=== PATIENT | female | born 1950 | race Caucasian/White ===

== ENCOUNTER 2017-10-22 09:45 | Emergency (ER) | payer MEDICARE ==
[2017-10-22] MEDS ORDERED: [UNRECOGNIZED DRUG - OTHER] (09:56)
[2017-10-22] MEDS ORDERED: ACETAMINOPHEN 500 MG TAB PO ONE (10:10)
--- NOTE | 2017-10-22 10:17 | ER Report ---
History and Physical Time Seen By MD: 10:08 Hx. of Stated Complaint: TRIPPED ON AN UNEVEN SURFACE. PAIN IN LEFT KNEE AND RIGHT SHOULDER HPI/ROS This is an otherwise healthy 67 y/o female who tripped and fell onto her left knee and right shoulder today. Unable to ambulate on left knee. Swelling and pain in left knee, but only minimal pain in right shoulder. Full range of motion in right shoulder. No other injuries. No blood thinners. Remainder of the 14 system rev: Yes Allergies: Coded Allergies: Penicillins (Verified Allergy, Intermediate, 10/22/17) RASH Home Meds Reported Medications [Zopanex] No Conflict Check 10/22/17 Reviewed Nurses Notes: Yes Old Medical Records Reviewed: Yes Hx Smoking: No Smoking Status: Never Smoker Hx Substance Use Disorder: No Hx Alcohol Use: No Constitutional Physical Exam General Appearance: The patient is alert, has no immediate need for airway protection and no current signs of toxicity. Eyes: Pupils equal and round no injection. Musculoskeletal: TTP at posterior aspect of right shoulder. FROM of right shoulder. No swelling. Left knee with swelling and effusion. Limited ROM. Extremities have full range of motion and are non tender. Skin: No rashes or lesions. DIFFERENTIAL DIAGNOSIS: After history and physical exam differential diagnosis was considered for fracture, dislocation, traumatic effusion Medical Decision Making ED Course/Re-evaluation ED Course Fall onto left knee. Arthrocentesis reveals hemarthrosis. Pain and mobility improved after procedure. Right shoulder with likely contusion. Full ROM, and normal xray. Also with patella fracture. Placed in a knee immobilizer, and will follow up with ortho. Procedure Arthrocentesis of left knee: Sterile field, 5ml of 1% lidocaine injected laterally. Approximately 45ml of blood drained from left knee joint. Pt. tolerated well, and mobility improved. Decision to Disposition Date: Oct 22, 2017 Decision to Disposition Time: 11:29 Depart Departure Latest Vital Signs Impression: Primary Impression: Patella fracture Additional Impression: Hemarthrosis Condition: Improved Disposition: HOME OR SELF-CARE Referrals: JAGDEEP PHILLIP MD Patient Instructions: Patellar Fracture (ED) Problem Qualifiers Primary Impression: Patella fracture Encounter type: initial encounter Fracture type: closed Fracture morphology : transverse Fracture alignment: nondisplaced Laterality: left Qualified Codes: S82.035A - Nondisplaced transverse fracture of left patella, initial encounter for closed fracture NABILA PACHECO MD Oct 22, 2017 10:17
--- NOTE | 2017-10-22 10:37 | RADIOLOGY IMAGING REPORT ---
FACILITY: [facility] - [place], [place] PATIENT NAME: Olivia Ace : 1950 MR: [id number] V: [id number] EXAM DATE: ORDERING PHYSICIAN: NABILA PACHECO TECHNOLOGIST: Location: [facility] Patient: Olivia Ace : 1950 Visit/Account:[id number] Date of Sevice: 10/22/2017 2 views right shoulder Indication: Fall onto left knee. Shoulder pain. Comparison: Unavailable Findings: There is no acute fracture-dislocation of the right glenohumeral joint. Limited views of the right upper lung zone are unremarkable. Visualized right acromioclavicular joint is unremarkable. IMPRESSION: 1. No acute osseous abnormality right shoulder. Report Dictated By: Carl Hart MD at 10/22/2017 10:31 AM Report E-Signed By: Carl Hart MD at 10/22/2017 10:32 AM WSN:[id number]
--- NOTE | 2017-10-22 10:38 | RADIOLOGY IMAGING REPORT ---
FACILITY: [facility] - [place] PATIENT NAME: Olivia Ace : 1950 MR: [id number] V: [id number] EXAM DATE: ORDERING PHYSICIAN: NABILA PACHECO TECHNOLOGIST: Location: Patient: Olivia Ace : 1950 Visit/Account:[id number] Date of Sevice: 10/22/2017 Left knee Indication: Fall onto left knee. Comparison: None available Findings: 3 views left knee were obtained. There is a transverse fracture through the mid pole of the patella, without significant separation. Overlying soft tissue swelling. The joint spaces are well-maintained. Moderate joint effusion with possible lipohemarthrosis. There is no focal soft tissue abnormality. No evidence of radiopaque foreign body. IMPRESSION: 1. Transverse fracture through the mid patella without significant separation. 2. Overlying soft tissue swelling. 3. Moderate joint effusion with possible lipohemarthrosis. Report Dictated By: Carl Hart MD at 10/22/2017 10:32 AM Report E-Signed By: Carl Hart MD at 10/22/2017 10:34 AM WSN:[id number]
[2017-10-22 11:11] VITALS: BP 131/84
== END 2017-10-22 11:40 | disposition home or self-care (01) ==
LOC: ER 10:27
DX: S82.035A Nondisplaced transverse fracture of left patella, initial encounter for closed fracture (principal)
CPT/HCPCS: 20610; 73030; 73562; 99284; A9270; L1830

== ENCOUNTER 2018-08-09 02:00 | Day surgery (SDC) | payer MEDICARE ==
[~2018-08-09] VITALS: Ht 162.6 cm; Wt 46.7 kg
[~2018-08-09 02:00] MED LIST: ACET500T68 PO; LEVA15HF IH; [UNRECOGNIZED DRUG - OTHER]
[2018-08-09 12:25] VITALS: BP 134/84
[2018-08-09] MEDS ORDERED: CLINDAMYCIN(*) 900 MG/NS 50 ML 50 ML IVPB ONE (13:30)
[2018-08-09] MEDS ORDERED: NORMOSOL R SOLN(*) 1000 ML BAG 1,000 ML IV PRN (13:30)
[2018-08-09] MEDS ORDERED: ACETAMINOPHEN(*)1000 MG/100 ML 100 ML IVPB ONE (13:30)
[2018-08-09] MEDS ORDERED: CELECOXIB 200 MG CAP PO ONE (13:30)
[2018-08-09] MEDS ORDERED: MIDAZOLAM 2 MG/2 ML VIAL IVP PRN (13:30)
[2018-08-09] MEDS ORDERED: FAMOTIDINE 20 MG TAB PO ONE (13:30)
[2018-08-09] MEDS ORDERED: LIDOCAINE/SOD BICARB 8.4% SYR ID ONE (13:30)
[2018-08-09] MEDS ORDERED: METOCLOPRAMIDE 10 MG/2 ML SDV ONE (14:17)
[2018-08-09] MEDS ORDERED: ONDANSETRON 4 MG/2 ML VIAL ONE (14:17)
[2018-08-09] MEDS ORDERED: PROPOFOL EMUL(*) 10MG/ML 20 ML 20 ML ONE (14:17)
[2018-08-09] MEDS ORDERED: LIDOCAINE MPF 1% 5 ML VIAL ONE (14:17)
[2018-08-09] MEDS ORDERED: DEXAMETHASONE SOD 4 MG/ML VIAL ONE (14:17)
[2018-08-09] MEDS ORDERED: fentaNYL CITR 250 MCG/5 ML AMP ONE (14:29)
[2018-08-09] MEDS ORDERED: ROPIVACAINE 0.2% 20 ML VIAL ONE (14:50)
[2018-08-09] MEDS ORDERED: fentaNYL CITR 100 MCG/2 ML AMP ONE ×3 (18:48→19:41)
--- NOTE | 2018-08-09 19:16 | OPERATIVE REPORT 1 ---
EVENT DATE: August 09, 2018 SURGEON: Jay Smith MD ANESTHESIOLOGIST: Hemant Crawford MD ANESTHESIA: General LMA. RADIO ENGINEER: Jim Tamayo PA-C PREOPERATIVE DIAGNOSIS Left distal radius and ulnar fractures which are comminuted and interarticular in greater than three parts. POSTOPERATIVE DIAGNOSIS Left distal radius and ulnar fractures which are comminuted and interarticular in greater than three parts. PROCEDURE PERFORMED Open reduction, internal fixation of a highly comminuted interarticular distal radius fracture which is greater than three parts and a comminuted interarticular distal ulna fracture. FINDINGS The patient had comminuted fractures that were amenable for fixation. ESTIMATED BLOOD LOSS Minimal as a tourniquet was used. DRAINS None. COMPLICATIONS None. IMPLANTS USED [employer] left, three-hole, narrow distal radius plate and then a distal ulna fragment plate out of [employer] set. We put locking pegs on the distal aspects of each plate and then regular nonlocking shaft screws in the proximal aspects. SPECIMENS None. TOURNIQUET TIME About 85 minutes. INDICATIONS AND HISTORY This patient is a 67-year-old female who presented to my clinic for evaluation of left distal radius and ulna fracture after falling about a week ago. She had pain and irritation associated with it and significant displacement of comminuted interarticular fractures, so we recommended fixation associated with this. The risks and benefits were discussed with the patient, and informed consent was obtained at the last clinic visit. 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 DESCRIPTION OF PROCEDURE As the patient was brought in the operating room, she and the procedure were both verified. She was placed supine on the operating table and induced and intubated by Anesthesia. The left upper extremity was then prepped and draped in the usual fashion, and timeout was observed verifying the correct patient and procedure. Incision was made via the volar approach. I was able to go past the flexor carpi radialis and then down into the area where the interarticular and comminuted fracture was. Once I was into this area, I was then able to reduce the fracture out to length and then utilize the three-hole plate from the [employer] set as a reduction tool. I pinned it in place, initially holding the fragments in place, and then found that we had it out to length and that we had a good articular reduction associated with this, and so therefore, I put two proximal screws in order to affix the plate to the proximal shaft and then two distal screws that were highly compressive locking screws in order to hold the distal portion intact also. C-arm images then verified that we were in good position. There was a small fragment off the ulnar side of the radius that we left in place as it was dorsal and did not have much structural integrity associated with it. Once we got verification that everything was in good position, I then put in another proximal nonlocking screw and then filled the rest of the distal holes in order to get a splay of the screws themselves with the locking screws in order to hold it in place, and there was a lot of comminution distally and dorsally. This then held everything in position. Everything was well reduced overall. I then irrigated with copious amounts of saline, closed this wound with 3-0 Vicryl in the subcutaneous tissue and then just over the FCR, and then a 4-0 nylon in the skin in interrupted mattress-type fashion. I then turned attention to the ulna where I made a small incision over the distal ulna, and then I utilized the fragment-specific plate from the [employer] set. I was able to lay this over the bone and reduce the bone in place. I then pinned it in place and verified on C-arm images that it was in good position and that we had a good area for fixation. I then put in one distal, highly compressive locking screw into the distal fragment in order to hold the ulnar styloid in placed. This was then followed by placement of two shaft screws in order to put the rest of the plate down, and this looked great. I then put one more distal locking screw into this area and achieved excellent fixation associated with the fragment. Final C-arm images were then taken. We irrigated this again with copious amounts of saline and then closed the subcutaneous tissue with a 3-0 Vicryl again and then 4-0 nylon in the skin once again. The tourniquet was let down after 85 or 90 minutes. Soft dressings were then applied with a volar and dorsal splint. The patient was awakened, extubated, and transferred to PACU in stable condition where she will be discharged home. [place]
[2018-08-09] MEDS ORDERED: oxyCODONE HCL 5 MG CAP ONE ×2 (19:40→20:34)
--- NOTE | 2018-08-09 20:35 | NUR ---
2034- PT REMAINED IN PACU SETTING BUT WAS PLACED IN PHASE 2 CHARTING, PT VSS, PT IS A/O X 3, PT'S PAIN IS IMPROVING, PT REMAINED UNDER MY CARE EDISON RENE, PT IS TOLERATING SMALL SIPS OF WATER AND BITES OF APPLESAUCE, SECOND PO ANALGESIA GIVEN PER DR. BYERS ORDERS, PT TO BE DISCHARGED HOME ON 2LPM VIA NC X 48HRS 2037- LEFT A SECOND MESSAGE FOR REGARDING POST OP SENSATION AND SWELLING 2057- PER DR. HERNANDEZ TO LOOSEN SPLINT AROUND HAND, EXPECTED SWELLING AND NUMBNESS D/T NATURE OF SURGERY 2102-LOOSENED SPLINT, PT NOTICED SOME RELIEF AND INCREASED COMFORT, EDUCATED PT ON WHAT TO LOOK FOR, COLOR, SENSATION, SWELLING ETC 2109- CORNELIA BROUGHT TO PT BEDSIDE 2114- SL IV 2119- SITTING VSS 2122- STANDING VSS, PT REPORTS FEELING WEAK ON HER FEET, SBA/WHEELCHAIR FOR TRANSFERS 2126- LINCARE AT BEDSIDE EDUCATING ON HOME O2 2131- PT TOLERATING CHEESE 2144- PT TO RESTROOM VIA WHEEL CHAIR, CORNELIA IN RESTROOM WITH PT 2200- D/C IV WITH CATH INTACT, PT REPORTS VOID X 1 WITHOUT ISSUES, PT PANTS WERE PUT ON IN RESTROOM 2204- PT REPORTS NAUSEA, EMESIS BAG GIVEN TO PT, HAD PT SNIFF ALCOHOL SWAB, PT REQUESTED A SALTINE, PT REPORTS NAUSEA PASSED 2209- PT DRESSED 2213- REVIEWED D/C INSTRUCTIONS WITH PT AND FAMILY 2219- PT REPORT NAUSEA AGAIN, NO EMESIS, PT THINKS THIS IS RELATED TO SIPS OF WATER 2224- CONTACT DR. BYERS REGARDING ODT ZOFRAN, VERBAL READ BACK ORDER TAKEN 2031- ODT 4MG ZOFRAN GIVEN TO PT SEE EMAR FOR DETAILS 2239- PT WHEELCHAIRED TO VEHICLE, PT ON 2LPM VIA NC, PLACED HOME O2 ON PT IN THE VEHICLE, PT ACCOMPANIED BY LUZ RENE, CORNELIA AND SON- BRAN
[2018-08-09 20:45] VITALS: BP 131/75
[2018-08-09 21:00] VITALS: BP 127/68
[2018-08-09 21:15] VITALS: BP 128/71
[2018-08-09 21:20] VITALS: BP 128/70
[2018-08-09 21:23] VITALS: BP 128/75
[2018-08-09] MEDS ORDERED: HYDR-653 PO (21:29)
[2018-08-09] MEDS ORDERED: ONDANSETRON 4 MG ODT TABDP SL ONE (22:25)
== END 2018-08-09 20:35 | disposition home or self-care (01) ==
LOC: OR 02:00
PROVIDERS: ATTEND Orthopaedic Surgery
DX: S52.572A Other intraarticular fracture of lower end of left radius, initial encounter for closed fracture (principal); S52.692A Other fracture of lower end of left ulna, initial encounter for closed fracture
CPT/HCPCS: 25609; 25652; 76000; A9270; C1713; J0131; J1100; J2001; J2405; J2704; J2765; J2795; J3010; J3490; Q0162; S0119